=== PATIENT | male | born 1945 | race Caucasian/White ===

== ENCOUNTER 2016-12-29 11:29 | Observation (INO) ==
[2016-12-29] MEDS ORDERED: DIPH/TET/ACEL PERT BOOSTER VACCINE 0.5 ML VIAL IM ONE ×2 (11:34→17:05)
[2016-12-29] MEDS ORDERED: SODIUM CHLORIDE 0.9% 1,000 ML IV STA (11:34)
--- NOTE | 2016-12-29 12:07 | Emergency Department Note ---
Santi Casillas Brooke, am scribing for, and in the presence of, Hemanth King MD 11 :45. Fernando Casillas Charles R, MD, personally performed the services described in this documentation, ascribed by Dominga Hancock in my presence, and it is both accurate and complete . Arrival - Arrival Chief Complaint: Syncope Stated Complaint: SYNCOPE Limitations: No Limitations Source: Patient, EMS, RN Notes Reviewed Time Seen by Provider: 12/29/16 11:30 - History of Present Illness HPI Narrative: Patient is a 71 year old male brought into the ED by EMS following a syncopal episode that happened prior to arrival. Patient was outside talking with someone when he had the syncopal episode. He says he does remember getting weak and falling. He fell backwards and hit his head. There is a laceration to the back of his head. Patient denies having any neck pain(c-collar on upon arrival) , chest pain, abdominal pain, back pain, or hip pain but says his "tail bone" is sore. Patient is currently oriented x3. Patient says he feels "okay" now. Patient is unsure when he last received a tetanus shot. He denies having any heart problems. Patient does not currently have a Primary Care Provider. Allergies/Adverse Reactions: Allergies Allergy/AdvReac Type Severity Reaction Status Date / Time No Known Allergies Allergy Unverified 12/29/16 11:40 Home Medications: Home Medications Medication Instructions Recorded Confirmed Type Aspirin EC Tab 81 mg PO DAILY 12/29/16 12/29/16 History Coconut Oil 5 ml PO DAILY 12/29/16 12/29/16 History Ubidecarenone [Co Q-10] 100 mg PO DAILY 12/29/16 12/29/16 History metFORMIN [Glucophage] 500 mg PO BID 12/29/16 12/29/16 History Review of System - Review of System 12 point system: reviewed and no additional remarkable complaints except as stated - Review of System Constitutional: Absent: fever Respiratory: Absent: respiratory distress Cardiovascular: Present: syncope. Absent: chest pain Musculoskeletal: Present: other ("tail bone" sore). Absent: back pain, neck pain Skin: Absent: rash Exam Vital Signs: Vital Signs Temperature 98.3 F 12/29/16 11:30 Pulse Rate 69 12/29/16 12:11 Respiratory Rate 18 12/29/16 11:40 Blood Pressure 158/79 12/29/16 12:11 O2 Sat by Pulse Oximetry 95 12/29/16 12:18 - General General appearance: alert, in no apparent distress - Head Head exam: Present: atraumatic, normocephalic - Eye Eye exam: Present: normal appearance - ENT ENT exam: Present: mucous membranes dry - Neck Neck exam: Present: normal inspection, other (Nexus Criteria Negative) - Chest Chest inspection: Present: normal inspection, symmetric chest wall rise - Respiratory Respiratory exam: Present: normal lung sounds bilaterally - Cardiovascular Cardiovascular exam: Present: regular rate, normal rhythm, normal heart sounds - Abdominal Exam Abdominal exam: Present: soft, normal bowel sounds. Absent: distention, tenderness - Extremities Exam Extremities exam: Present: normal inspection - Back Exam Back exam: Present: normal inspection - Neurological Exam Neurological exam: Present: alert, oriented X3, CN II-XII intact - Psychiatric Psychiatric exam: Present: normal affect, normal mood - Skin Skin exam: Present: warm, normal color, other (3cm stellate irregular laceration to posterior head. Poor skin turgor.). Absent: dry (clammy) Course - Consultations Consultation #1: Hospitalist will admit patient Time: 13:47 Procedures - Laceration Laceration 1 Site: scalp Size (cm): 3 Description: stellate Pre-repair: wound explored, irrigated extensively, deep structures intact Skin layer closed with: other (Staple gun) Number of sutures: 7 Results - Labs CBC & BMP: 12/29/16 12:06 12/29/16 12:06 Lab Results: I have reviewed the patients labs Labs: Laboratory Tests 12/29/16 12/29/16 12:06 12:06 WBC 5.8 RBC 3.68 L Hgb 11.7 L Hct 33.0 L MCV 89.7 MCH 32 MCHC 35.5 RDW 13.0 Plt Count 284 MPV 8.5 L Neut % (Auto) 76.5 H Lymph % (Auto) 13.6 L [place] % (Auto) 8.1 Eos % (Auto) 1.0 Baso % (Auto) 0.3 Neut # (Auto) 4.4 Lymph # (Auto) 0.8 L [place] # (Auto) 0.5 Eos # (Auto) 0.1 Baso # (Auto) 0.0 Immature Gran % 0.5 Nucleated RBC % 0.0 Immature Gran # 0.03 Nucleated RBCs # 0.00 INR 1.0 PT Patient/Control Mix 10.5 Laboratory Tests 12/29/16 12/29/16 12/29/16 12:06 12:06 12:06 Sodium 142 Potassium 4.2 Chloride 107 Carbon Dioxide 29 Anion Gap 10.2 BUN 17 Creatinine 0.90 GFR Calculation 89 BUN/Creatinine Ratio 18.00 Glucose 166 H Calculated Osmolality 288.1 Calcium 8.6 Magnesium 2.3 Total Bilirubin 0.40 AST 15 ALT 19 Alkaline Phosphatase 53 Troponin I 0.021 B-Natriuretic Peptide 65 Total Protein 6.2 L Albumin 3.6 Globulin 2.6 Albumin/Globulin Ratio 1.3 Urine Color Yellow Urine Appearance Clear Urine pH 7.0 Ur Specific [place] 1.013 Urine Protein 30 Urine Glucose (UA) Negative Urine Ketones Negative Urine Blood Negative Urine Nitrate Negative Urine Bilirubin Negative Urine Urobilinogen < 2.0 H Urine Leukocytes Negative Urine RBC 1 Urine WBC 3 Hyaline Casts 2 Urine Mucus Occasional Ur Culture Indicated? Not indicated Urine Opiates Screen Ur Barbiturates Screen Ur Phencyclidine Scrn U Amphetamine/Methamph U Benzodiazepines Scrn U Cocaine Metab Screen U Cannabinoids Screen Serum Alcohol < 15 L 12/29/16 12:06 Sodium Potassium Chloride Carbon Dioxide Anion Gap BUN Creatinine GFR Calculation BUN/Creatinine Ratio Glucose Calculated Osmolality Calcium Magnesium Total Bilirubin AST ALT Alkaline Phosphatase Troponin I B-Natriuretic Peptide Total Protein Albumin Globulin Albumin/Globulin Ratio Urine Color Urine Appearance Urine pH Ur Specific [place] Urine Protein Urine Glucose (UA) Urine Ketones Urine Blood Urine Nitrate Urine Bilirubin Urine Urobilinogen Urine Leukocytes Urine RBC Urine WBC Hyaline Casts Urine Mucus Ur Culture Indicated? Urine Opiates Screen Negative Ur Barbiturates Screen Negative Ur Phencyclidine Scrn Negative U Amphetamine/Methamph Negative U Benzodiazepines Scrn Negative U Cocaine Metab Screen Negative U Cannabinoids Screen Negative Serum Alcohol - Diagnostic Findings Procedure: Chest x-ray: report reviewed by me (No acute cardiopulmonary process. ), CT: report reviewed by me, pending (CT head/brain wo con: 1. Aging changes. White matter changes likely related to chronic microvascular ischemia. 2. No evidence of acute intracranial injury. 3. Within the left maxillary sinus, there is fluid or mucosal thickening and a corticated curvilinear osseous density which may represent averaging with of the maxilla/dental root. If the patient has had trauma to the left cheek area, you may wish to obtain a CT of the facial bones to completely evaluate this area. CT cervical spine: 1. No evidence of acute cervical spine pathology. 2. Multilevel mild degenerative changes as detailed above.), X-ray: report reviewed by me (XR sacrum: No acute findings.) Disposition Clinical Impression: Syncope and collapse, Occipital scalp laceration Case discussed with: patient, patient's family Disposition: Still a Patient Condition: Stable Time of Disposition: 13:48
[2016-12-29 12:12] LABS: Basophils % 0.3 % (0.0-0.8); Eosinophils # 0.1 10*3/uL (0.0-0.87); Hemoglobin 11.7 GM/DL (14.0-18.0); Immature Granulocytes % 0.5 %; Immature Granulocytes Absolute 0.03 #; Lymphocytes # 0.8 10*3/uL (1.4-4.0); Lymphocytes % 13.6 % (21.2-54.2); Mean Corpuscular HGB Conc 35.5 GM/DL (32-36); Mean Corpuscular Hemoglobin 32 PG (27-34); Mean Corpuscular Volume 89.7 FL (87-102); Mean Platelet Volume 8.5 FL (9.6-12.0); Monocytes # 0.5 10*3/uL (0.11-0.8); Monocytes % 8.1 % (1.7-12.7); Neutrophils # 4.4 10*3/uL (1.4-7.4); Neutrophils % 76.5 % (38.7-73.9); Platelet Count 284 T/CUMM (130-400); Red Blood Count 3.68 MC/CUMM (3.8-5.5); White Blood Count 5.8 T/CUMM (4-12)
--- NOTE | 2016-12-29 12:16 | CT Report ---
Syncope. Fall, injury to the back of the head. Head pain and neck pain. Axial images were obtained with sagittal and coronal reconstructions. There is calcific plaque present within the intracranial internal carotid arteries and vertebral arteries. There is generalized prominence of the ventricles and sulci, which is age-appropriate. There is no mass effect, midline shift, or area of hemorrhage. No cortical infarcts are seen at this time. Within the white matter of both cerebral hemispheres, there are mild foci of decreased density most likely attributable to chronic microvascular ischemia. The calvarium is intact. There is mucosal thickening or fluid in the left maxillary sinus. Within the anterior lower aspect of the left maxillary sinus, there is a curvilinear corticated osseous density which may be related to the maxilla and teeth roots. The calvarium is intact. The mastoid air cells are clear. There is mild scalp swelling along the left posterior parietal convexity. Impression: 1. Aging changes. White matter changes likely related to chronic microvascular ischemia. 2. No evidence of acute intracranial injury. 3. Within the left maxillary sinus, there is fluid or mucosal thickening and a corticated curvilinear osseous density which may represent averaging with of the maxilla/dental root. If the patient has had trauma to the left cheek area, you may wish to obtain a CT of the facial bones to completely evaluate this area. The CT exam was performed using one or more of the following dose reduction techniques: Automated exposure control, adjustment of the mA and/or kV according to patient size, or use of iterative reconstruction technique. PROCEDURE INTERPRETED AT [facility] DEPARTMENT OF RADIOLOGY Final Report Signed by: Dr. Nusrat Almeida
--- NOTE | 2016-12-29 12:19 | CT Report ---
CT cervical spine wo con Indication: Injury, trauma, fall, neck pain Comparison: None. Technique: CT of the cervical spine was performed without administration of intravenous contrast. In addition to axial source images obtained from the skull base through the upper chest, coronal and sagittal MPR series were submitted for interpretation. The total DLP is 388.7 mGy*cm. Dose reduction: This CT exam was performed using one or more of the following dose reduction techniques: Automated exposure control, automated adjustment of the mA and/or KV according to patient size, or use of iterative reconstruction technique. Findings: The base of the skull demonstrates no evidence of significant pathology. Alignment of the cervical spine is within normal limits. Cervical vertebral body heights are well maintained throughout the cervical spine. Intervertebral disc spaces are generally maintained. There is moderate disc space loss at C5-C6 with endplate sclerotic changes and posterior disc osteophyte complex which causes at least mild spinal stenosis. There is no suggestion of high-grade spinal stenosis or neuroforaminal stenosis. Multilevel facet and uncovertebral hypertrophy is noted throughout the cervical spine. There is no acute fracture or subluxation within the cervical spine. No suspicious osseous lesions are identified. Prevertebral soft tissues demonstrate no significant abnormalities. The thyroid gland demonstrates no evidence of acute pathology. Imaged portion of the upper chest demonstrates no evidence of significant pathology. Impression: 1. No evidence of acute cervical spine pathology. 2. Multilevel mild degenerative changes as detailed above. 12/29/2016 12:11 PM PROCEDURE INTERPRETED AT [facility] DEPARTMENT OF RADIOLOGY Final Report Signed by: Jorge Paulson
[2016-12-29 12:21] LABS: PT Patient Result 10.5 SECS
--- NOTE | 2016-12-29 12:22 | XRay Report ---
Exam: XR chest 1V portable Indication: Shortness of breath Comparison study: None Findings: The heart, mediastinum, and bony structures are within normal limits. There is no focal consolidation, pneumothorax or pleural effusion identified. Impression: No acute cardiopulmonary process. PROCEDURE INTERPRETED AT [facility] DEPARTMENT OF RADIOLOGY Final Report Signed by: Jorge Paulson
[2016-12-29 12:43] LABS: Alanine Aminotransferase 19 U/L (16-61); Albumin 3.6 G/DL (3.4-5.0); Alkaline Phosphatase 53 U/L (45-117); Aspartate Amino Transferase 15 U/L (0-37); Blood Urea Nitrogen 17 MG/DL (7-18); Calcium 8.6 MG/DL (8.5-10.1); Glucose 166 MG/DL (74-106); Magnesium 2.3 MG/DL (1.8-2.4); Osmolality,Calculated 288.1 MOS/KG (273-304); Potassium 4.2 MMOL/L (3.5-5.1); Sodium 142 MMOL/L (136-145); Total Protein 6.2 G/DL (6.4-8.3); Troponin I Only 0.021 NG/ML (0.00-0.045)
[2016-12-29 12:45] LABS: Apearance,Urine CLEAR (Clear); Bilirubin,Urine Negative (Negative); Blood, Urine Negative (Negative); Glucose,Urine (UA) Negative (Negative); Hyaline Casts,Urine 2 /LPF (0-3); Ketones,Urine Negative (Negative); Mucus,Urine Occasional /LPF (Occasional); Nitrite,Urine Negative (Negative); Protein,Urine 30 MG/DL; RBC,Urine 1 /HPF (0-4); Urine Color Yellow (Yellow); Urine Specific Gravity 1.013 (1.001-1.035); Urine Urobilinogen < 2.0 EU/DL (0.2-1.0); WBC,Urine 3 /HPF (0-6)
--- NOTE | 2016-12-29 12:45 | XRay Report ---
XR sacrum coccyx, 2 views Clinical Information: FALL, PAIN Comparison: None Findings: There is generalized osteopenia. There are degenerative changes which are moderate to advanced including disc space loss and facet arthropathy at L4-5 and L5-S1. There is no definite sacrococcygeal acute displaced fracture identified no suspicious osseous or soft tissue lesions are identified. Impression: No acute findings. PROCEDURE INTERPRETED AT [facility] DEPARTMENT OF RADIOLOGY Final Report Signed by: Jorge Paulson
[2016-12-29 12:52] LABS: Barbiturates Screen,Urine Negative (Negative); Benzodiazepines Screen,Urine Negative (Negative); Cannabinoid Screen,Urine Negative (Negative); Opiate Screen,Urine Negative (Negative); Phencyclidine Screen,Urine Negative (Negative)
[2016-12-29] MEDS ORDERED: LIDOCAINE 2% TOP JELLY 5 ML TUBE TOP ONE (13:05)
--- NOTE | 2016-12-29 14:06 | EKG Report ---
Stationary ECG Study [facility] ER Test Date: 12/29/2016 11:36:14 AM Pat Name: NIKITA JIMENEZ Department: Room: Gender: M Composite Worker: CAIT : 1945 Requested by: Hemanth Jaimes Order Number: [id number] Reading MD: EDTIA VILLAVICENCIO Intervals [place] Rate: 63 P: 82 MO: 236 QRS: -7 QRSD: 154 T: 53 QT: 473 QTc: 480 Interpretive Statements SINUS RHYTHM WITH PROLONGED MO INTERVAL RIGHT BUNDLE BRANCH BLOCK Electronically Signed On 12-30-16 16:08:20 CDT by EDITA VILLAVICENCIO [email or web address]
[2016-12-29] MEDS ORDERED: DEXTROSE 50% 25 GM/50 ML VIAL IV PRN (15:36)
[2016-12-29] MEDS ORDERED: GLUCAGON 1 MG VIAL IM PRN (15:36)
--- NOTE | 2016-12-29 16:01 | Hospitalist History & Physical ---
<Jeremi Jordan - Last Filed: 12/29/16 15:44> Assessment and Plan - Time spent with patient Time spent with patient: Greater than 30 minutes (1) Syncope and collapse Status: Acute Assessment and plan: Admit for observation. Head CT, carotid Dopplers, echocardiogram, serial troponins. Repeat labs in a.m. Current Visit: Yes (2) Diabetes mellitus Status: Acute Assessment and plan: Accu-Cheks ACHS. Sliding scale insulin per protocol. Current Visit: Yes (3) Occipital scalp laceration Status: Acute Assessment and plan: Treated in the ED with baljinder. Current Visit: Yes History of Present Illness Chief complaint: Syncope History of present illness: Mr. Rothman is a 71 year old white male with past medical history significant for diabetes mellitus who presented to the ED today after suffering a syncopal event earlier today. Patient reports that this is the second time this has happened to him. He notes that he was standing outside in the sun while waiting to send his daughter off to a jewish trip when he began to feel weak. He notes that he could sense syncope sitting in an attempted to steady himself and ease down to the ground just before he lost consciousness, striking the ground and hitting the back of his head on the gravel. He did sustain several lacerations to the head and arms bilaterally. His wounds were treated in the ED , and we were consulted to admit for syncope. Patient is oriented 3 and coherent. Responses are appropriate, though verbose. Patient confirms headache and a sore tailbone. He denies any blurry vision, chest pain, palpitations, numbness or tingling, abdominal pain, nausea vomiting, hematemesis , hematochezia, lower extremity edema. Patient notes that he does not have a PCP, however he does admit to making recent lifestyle changes in an effort to better his health. He states that he attempts to drink more filtered water throughout the day, drinks less sodas, eats more fruits. He notes that on yesterday he did partake in a kickboxing class, sweating quite profusely. He tells me that he did not rehydrate with water or Gatorade. He also states that he only had a "piece of fruit and a cup of coffee" this morning before taking his daughter to her meeting location for the trip. Laboratory work on admission is significant for hemoglobin 11.7, hematocrit 33.0 , glucose 166, troponin 0.021, total protein 6.2. All other lab values are within normal limits. Patient is a full code. His home medications have been reviewed and reconciled. Case has been discussed with Dr. Perales and the patient will be admitted to the hospital medicine service for observation and further treatment. Home Medications Medication Instructions Recorded Confirmed Type Aspirin EC Tab 81 mg PO DAILY 12/29/16 12/29/16 History Coconut Oil 5 ml PO DAILY 12/29/16 12/29/16 History Ubidecarenone [Co Q-10] 100 mg PO DAILY 12/29/16 12/29/16 History metFORMIN [Glucophage] 500 mg PO BID 12/29/16 12/29/16 History Allergies Allergy/AdvReac Type Severity Reaction Status Date / Time No Known Allergies Allergy Unverified 12/29/16 11:40 Medical,Surgical,& Family Hx - Medical History Endocrine: History of: Diabetes Mellitus (IDDM) - Family History Family History: Reports;: Family Diabetes - Social History Smoking Status: Never smoker Frequency of Alcohol Use: None Type of Drug Use: None Marital Status: Lives With:: Spouse Functional capacity: independent ambulation 12 point system: reviewed and no additional remarkable complaints except as stated Exam - Constitutional Vitals: Period Temp Pulse Resp BP Sys/Davila Pulse Ox Last 24 Hr 98.3 F-98.3 F 64-69 18-18 131-158/60-79 95-99 Exam: General appearance: overweight, no acute distress - Head Head exam: Present: normocephalic, atraumatic - Eye Eye exam: Present: EOMI. Absent: conjunctival injection, nystagmus Pupils: Present: BRIAN, normal accommodation - ENT ENT exam: Present: normal exam, normal external ear exam - Neck Neck exam: Present: normal inspection. Absent: lymphadenopathy, tenderness, thyromegaly - Respiratory Respiratory exam: Present: clear to auscultation bilaterally. Absent: rales, rhonchi, wheezes - Cardiovascular Cardiovascular exam: Present: regular rate and rhythm. Absent: carotid bruit, gallop, rubs - GI/Abdominal GI/Abdominal exam: Present: normal bowel sounds. Absent: ascites, distended, mass - Extremities Exam Extremities exam: Present: normal inspection, normal capillary refill. Absent: edema - Back Exam Back exam: Absent: CVA tenderness (L), CVA tenderness (R) - Neurological Exam Neurological exam: Present: alert, oriented X3, CN II-XII intact, reflexes normal - Psychiatric Psychiatric exam: Present: normal affect, normal mood - Skin Skin exam: Present: normal color, warm, dry Results - Labs CBC & BMP: 12/29/16 12:06 12/29/16 12:06 Lab Results: I have reviewed the past 24 hour labs <Yaneth Perales - Last Filed: 12/29/16 16:33> History of Present Illness History of present illness: Shared Visit with ANDREAS Mc. Pt was seen, interviewed and personally examined by me. In brief, Mr. Rothman is a 71 year old male who presented to hospital with syncopal episode. Pt reports he got up this am and was feeling fine. He was preparing to take his daughter to [place] for a jewish trip and was standing in the sun and was sweating due to warm temperatures outside. He started to feel weak and tried to sit down but passed out hitting the back of his head. He reports he was out for approximately 5 minutes. He denies any vertigo, lightheadedness or dizziness, parathesias, paralysis. No chest pain, palpitations, SOB, nausea, vomiting, abdominal pain. No jerking or incontinence. He reports he had a similar event 1.5 years ago when he only had a small amount to eat. He did not seek medical attention at that time. A friend called EMS and he was brought to ER for further evaluation and treatment. PMH, PSH, MEDS, ALL, FH, SH, ROS was reviewed and addendums made as needed On exam He has a posterior laceration with sutures intact now HEENT: pupils equal round and reactive to light. Extraocular muscles are intact. Sclerae clear. Conjunctivae pink. Dry mucous membranes noted. Nares are patent no discharge or epistaxis noted. Oropharynx is clear with dry mucous membranes. Neck is supple. No lymphadenopathy or thyromegaly appreciated. No JVD. No point tenderness noted. Cardiovascular: Regular rate and rhythm. Normal S1-S2. No obvious murmurs rubs or gallops Lungs are clear to auscultation bilaterally with good aeration, nonlabored breathing noted. Abdomen is soft, nontender nondistended. Positive bowel sounds. No organomegaly or masses appreciated. Extremities: Cranial nerves II through XII are intact. Motor exam revealed 5 out of 5 strength of the upper and lower extremities bilaterally. Sensory exam was grossly intact. Babinski was absent. No clonus noted. +2 patellar and brachial reflexes appreciated bilaterally. He had a normal finger nose exam. Gait was not assessed. Labs and investigative studies were reviewed. Agree with assessment and plan as delineated in the physician molding line assistant's note. Further information to follow as more information is available. I will be away several days. 1 of my associates will follow in my absence. 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
--- NOTE | 2016-12-29 16:37 | Ultrasound Report ---
Bilateral carotid Doppler. Indication: Syncope. No prior studies. Grayscale, color-flow, and spectral analysis performed and interpreted. There is mild bland plaque present the origin of the right internal carotid artery. The right internal carotid artery peak systolic velocity is 88 cm/s with an IC/CC ratio of 1.1. The left internal carotid artery peak systolic velocity is 63 cm/s, with an IC/CC ratio 1.2. There is antegrade flow within each vertebral artery. Impression: Using NASCET criteria, findings consistent with less than 50% stenosis bilaterally. Ultrasound images captured and stored. PROCEDURE INTERPRETED AT [facility] DEPARTMENT OF RADIOLOGY Final Report Signed by: Dr. Nusrat Almeida
[2016-12-29] MEDS ORDERED: ceFAZolin 1,000 MG VIAL ONE (17:05)
[2016-12-29] MEDS: INSULIN LISPRO 100 UNIT/ML SUBCUT SCH ×2 (18:01→22:12)
[2016-12-29] MEDS: PANTOPRAZOLE 40 MG TABLET PO SCH (18:01)
[2016-12-29] MEDS: SODIUM CHLORIDE 0.9% 1,000 ML IV SCH (18:02)
[2016-12-29] MEDS ORDERED: IBUPROFEN 400 MG TABLET PO PRN (21:15)
[2016-12-29] MEDS: ACETAMINOPHEN 325 MG TABLET PO PRN (22:12)
[2016-12-30] MEDS: SODIUM CHLORIDE 0.9% 1,000 ML IV SCH ×3 (02:05→16:29)
[2016-12-30 05:53] LABS: Basophils % 0.3 % (0.0-0.8); Eosinophils # 0.1 10*3/uL (0.0-0.87); Eosinophils % 0.7 % (0.00-10.9); Hematocrit 31.5 VOL% (42.0-52.0); Hemoglobin 10.9 GM/DL (14.0-18.0); Immature Granulocytes % 0.4 %; Immature Granulocytes Absolute 0.03 #; Lymphocytes # 0.9 10*3/uL (1.4-4.0); Lymphocytes % 12.2 % (21.2-54.2); Mean Corpuscular HGB Conc 34.6 GM/DL (32-36); Mean Corpuscular Hemoglobin 31 PG (27-34); Mean Corpuscular Volume 90.8 FL (87-102); Mean Platelet Volume 8.3 FL (9.6-12.0); Monocytes # 0.6 10*3/uL (0.11-0.8); Monocytes % 8.9 % (1.7-12.7); Neutrophils # 5.4 10*3/uL (1.4-7.4); Neutrophils % 77.5 % (38.7-73.9); Platelet Count 261 T/CUMM (130-400); Red Blood Count 3.47 MC/CUMM (3.8-5.5); Red Cell Distribution Width 13.1 % (9.3-17.3)
[2016-12-30 06:24] LABS: Calcium 8.5 MG/DL (8.5-10.1); Osmolality,Calculated 278.4 MOS/KG (273-304)
[2016-12-30] MEDS: ASPIRIN EC 81 MG TABLET PO SCH (09:48)
[2016-12-30] MEDS: PANTOPRAZOLE 40 MG TABLET PO SCH (09:48)
[2016-12-30] MEDS: INSULIN LISPRO 100 UNIT/ML SUBCUT SCH ×4 (09:49→20:16)
--- NOTE | 2016-12-30 14:21 | ECHO Report ---
Bakari Rothman Exam Date: 12/30/2016 09:22 Referring Physician: Technologist: Yancy Stahl RDCS Age: 71 Ht (in): 59 Wt (lb): 180 Gender: M Exam Location: [facility] Echo Indications: Syncope and collapse, IDDM BP: 141 / 67 HR: 75 Rhythm: Sinus Technical Quality: IMPRESSIONS Left ventricular ejection fraction is estimated at 65 %. Moderate concentric left ventricular hypertrophy with mild diastolic dysfunction. Mild bilateral atrial enlargement. Trace mitral valve regurgitation. Trace to mild aortic valve regurgitation. Trace to mild tricuspid valve regurgitation. Tricuspid regurgitation velocities suggest a PAP of 42 mmHg. MEASUREMENTS (Male / Female) Normal Values 2D ECHO LV Diastolic Diameter PLAX 5.0 cm 4.2 - 5.9 / 3.9 - 5.3 cm LV Systolic Diameter PLAX 2.7 cm LV Fractional Shortening PLAX 46.2 % IVS Diastolic Thickness 1.2 cm 0.6 - 1.0 / 0.6 - 0.9 cm LVPW Diastolic Thickness 1.2 cm 0.6 - 1.0 / 0.6 - 0.9 cm RV Internal Dim ED PLAX 2.7 cm Aortic Root Diameter 3.6 cm LA Systolic Diameter LX 4.5 cm 3.0 - 4.0 / 2.7 - 3.8 cm DOPPLER TR Peak Velocity 281.0 cm/s TR Peak Gradient 31.6 mmHg FINDINGS Left Ventricle Normal left ventricular cavity size. Moderate concentric left ventricular hypertrophy with mild diastolic dysfunction. Left ventricular ejection fraction is estimated at 65 %. Right Ventricle The right ventricle is normal in size and function. Right Atrium The right atrium is mildly enlarged. Left Atrium The left atrium is mildly enlarged. Mitral Valve Structurally normal mitral valve. Trace mitral valve regurgitation. Aortic Valve Trileaflet aortic valve. Trace to mild aortic valve regurgitation. Tricuspid Valve Morphologically normal tricuspid valve. Trace to mild tricuspid valve regurgitation. Tricuspid regurgitation velocities suggest a PAP of 42 mmHg. Pulmonic Valve Morphologically normal pulmonic valve without significant stenosis. There is no pulmonic regurgitation. Pericardium Normal pericardium without effusion. Aorta Normal ascending aorta dimension. Andrea Tarango (Electronically Signed) Final Date: 30 December 2016 14:20
--- NOTE | 2016-12-30 19:53 | Hospitalist Progress Note ---
Hospitalist: Subjective Interval history: Patient was admitted with syncope. Today he was out in the heart rate are under the sun for about 2 hours before he started sweating profusely and then passed out. It appears that he suffered from heat exhaustion. Today's feeling much better ambulating and has no problems today at all. Exam - Constitutional Vitals: Period Temp Pulse Resp BP Sys/Davila Pulse Ox Last 24 Hr 97.7 F-99.0 F 65-87 18-20 141-194/67-90 96-98 Exam: General: No Acute Distress HEENT: Normocephalic, atraumatic, Extra ocular movements intact Neck: Supple, No JVD Chest: Clear to auscultation B/L CV: S1 + S2 audible without murmur, gallop or rub Abd: soft, NT, Non-distended, BS + Ext: No edema Skin: No purpura, bruising or rash Rheumatologic: No Joint deformities Neurologic: Strengtg 5/5 all extremities, no gross sensory deficits Results - Labs CBC & BMP: 12/30/16 05:38 12/30/16 05:38 - Impressions (1) vasovagal syncope due to heat exhaustion Status: Acute Assessment and plan: Admit for observation. Head CT, carotid Dopplers, echocardiogram, serial troponins, all unremarkable. Patient was advised to avoid hot weather for any prolonged periods of time. Current Visit: Yes (2) Diabetes mellitus Status: Acute Assessment and plan: Accu-Cheks ACHS. Sliding scale insulin per protocol. Current Visit: Yes (3) Occipital scalp laceration Status: Acute Assessment and plan: Treated in the ED with baljinder. Follow up with PCP or come to emergency room in about a week for removal of baljinder. Current Visit: Yes
[2016-12-31] MEDS: ACETAMINOPHEN 325 MG TABLET PO PRN ×2 (00:19→15:56)
[2016-12-31] MEDS: SODIUM CHLORIDE 0.9% 1,000 ML IV SCH (00:29)
[2016-12-31] MEDS ORDERED: cloNIDine 0.1 MG TABLET PO ONE (07:58)
[2016-12-31] MEDS: INSULIN LISPRO 100 UNIT/ML SUBCUT SCH ×3 (08:00→16:30)
[2016-12-31] MEDS: ASPIRIN EC 81 MG TABLET PO SCH (08:14)
[2016-12-31] MEDS: PANTOPRAZOLE 40 MG TABLET PO SCH (08:14)
[2016-12-31] MEDS ORDERED: LISINOPRIL 10 MG TABLET PO SCH (09:00)
[2016-12-31 16:30] VITALS: BP 140/69
--- NOTE | 2016-12-31 17:22 | Discharge Summary ---
Hospital Course - Hospital Course Hospital Course: Patient was admitted with syncope. He was outside under the hot sun for about 2 hours before he started sweating profusely and then passed out. It appears that he suffered from heat exhaustion. He was admitted to the hospitalist service. CT scan of the head was unremarkable and he was not orthostatic carotid Doppler was unremarkable grossly. Patient had vasovagal syncopal episode due to heat exhaustion and dehydration. He was given IV fluids. He had no further recurrence while he was in the hospital. Blood pressure has been elevated in the hospital, and he does not carry a diagnosis of hypertension and was not taking any medication for it. Blood pressure is almost 190 systolic and he was given clonidine as well as started on lisinopril 10 mg daily, which has brought his blood pressure down to 140 systolic which is quite reasonable. He is otherwise feeling better and it has been felt that he has reached maximal hospital benefit and being discharged home in improved and stable condition. Final diagnoses is a syncopal episode due to vasovagal phenomenon or vasovagal syncope and essential hypertension. Discharge follow-up primary care physician Discharge diet low-salt Discharge activity ad iris. - Time spent with patient Time with patient DS: Less than 30 minutes Diagnosis - Discharge Diagnosis (1) Syncope and collapse Status: Resolved Discharge Plan - Discharge Data Condition at Discharge: Stable Discharge Diet: low salt diet Activity: increase activity as tolerated Hygiene: no restrictions, may shower Weight Bearing at Discharge: full weight bearing Driving: no restrictions Contact your physician if you experience:: fever over 101, Redness or swelling, Nausea/Vomiting, Shortness of breath - Discharge Medications New Lisinopril [Prinivil] 10 mg PO DAILY #30 tablet Continue Ubidecarenone [Co Q-10] 100 mg PO DAILY Aspirin EC Tab 81 mg PO DAILY Coconut Oil 5 ml PO DAILY metFORMIN [Glucophage] 500 mg PO BID - Follow Up or Referral - Forms/Instructions Exam - Constitutional Vitals: Period Temp Pulse Resp BP Sys/Davila Pulse Ox Last 24 Hr 97.6 F-98.4 F 52-81 16-24 140-199/69-93 93-99 Exam: General: [No Acute Distress] HEENT: [Normocephalic, atraumatic, Extra ocular movements intact] Neck: [Supple, No JVD] Chest: [Clear to auscultation B/L] CV: [S1 + S2 audible without murmur, gallop or rub] Abd: [soft, NT, Non-distended, BS +] Ext: [No edema] Skin: [No purpura, bruising or rash] Rheumatologic: [No Joint deformities] Neurologic: [Strengtg 5/5 all extremities, no gross sensory deficits] Discharge Results Labs on day of discharge: Labs from last 24 hours 12/31/16 12/31/16 12/31/16 16:19 11:47 07:32 POC Glucose 127 H 204 H 133 H 12/30/16 19:36 POC Glucose 246 H DS: Provider Date of admission: 12/29/16 15:28 Primary care physician: . No PCP Attending physician on admission: Yaneth Perales MD Discharging clinician: Ovidio Burt MD
== END 2016-12-31 18:31 | disposition home or self-care (01) ==
LOC: EDBD → EDUNIT# → N.ED 11:29 → N.EDINP 11:29 → SUATTDRO 15:28 → N.EDINP 17:22 → N.4E 17:28
PROVIDERS: ADMIT Pediatrics; ATTEND Hospitalist